=== PATIENT | male | born 1960 | race American Indian/Alaskan Native ===

== ENCOUNTER 2017-05-21 10:26 | Outpatient (CLI) | payer BC ==
--- NOTE | 2017-05-21 13:02 | XRay Report ---
Cervical spine: Pain. Anterior spondylosis is noted at the C5-6 articulation. Vertebral I., alignment, and interspaces are preserved. The AP view and C1-2 is limited however the dens is well-visualized in the lateral projection. Impression: Focal spondylosis at C5-6 with no acute findings suspected. THORACIC SPINE: Pain. The bones are normally mineralized with well preserved vertebral height, alignment and interspace distances. No paraspinal soft tissue widening is noted. IMPRESSION: Normal study. Lumbar spine: Pain. There is mild spondylosis predominantly at the L4 and L5 levels. The vertebral height, alignment, and interspaces appear generally preserved. The bones appear relatively well-mineralized. Impression: L4-5 spondylosis with no acute findings. LEFT SHOULDER: Pain. Routine views demonstrate normal bony and soft tissue structures with normal joint alignment of the shoulder. IMPRESSION: Normal study.
== END 2017-05-21 10:27 | disposition home or self-care (01) ==
LOC: SPVIMAG 10:26
PROVIDERS: ATTEND Internal Medicine
DX: M47.892 Other spondylosis, cervical region (principal); M47.896 Other spondylosis, lumbar region; G89.29 Other chronic pain; M54.6 Pain in thoracic spine; M25.512 Pain in left shoulder
CPT/HCPCS: 72040; 72072; 72100